=== PATIENT | male | born 1950 | race African-American/Black ===

== ENCOUNTER 2017-08-28 12:19 | Emergency (ER) | payer OTHER ==
[2017-08-28 12:25] VITALS: TEMP 97.7; BMI 24.3
--- NOTE | 2017-08-28 13:21 | PDOC ---
History of Present Illness - General Chief Complaint: Edema Stated Complaint: SWOLLEN LEG Time Seen by Provider: 08/28/17 12:31 History Source: Patient Exam Limitations: No Limitations - History of Present Illness Initial Comments: 08/28/17 13:18 66 y/o M with PMH HTN, urinary incontinence,and schizophrenia, who presents to the ED c/o R knee pain and RLE edema over the past week. 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 A week ago, pt noticed gradual development of edema in his RLE, without shooting pains , numbness or tingling. A day later, he developed pain in his R knee- 5/10, dull pain worsened by movement and increased weight bearing. Pain was temporarily alleviated with ointment. Pt denies MULLEN, fever, chills, or changes in urinary or bowel function. He does not recall twisting his ankle, or any direct injury to his RLE. 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 denies cigarette, alcohol, or recreational drug use Past History - Travel Traveled outside of the country in the last 30 days: No - Past Medical History Allergies/Adverse Reactions: Allergies Allergy/AdvReac Type Severity Reaction Status Date / Time Penicillins Allergy Verified 08/28/17 12:20 Home Medications: Ambulatory Orders Ibuprofen 400 mg PO DAILY PRN #10 tablet 08/28/17 COPD: No HTN: Yes Hypercholesterolemia: Yes Psychiatric Problems: Yes (DEPRESSION,ANXEITY) - Surgical History Abdominal Surgery: Yes (ABD HERNIA) - Suicide/Smoking/Psychosocial Hx Smoking History: Never smoked Have you smoked in the past 12 months: No Information on smoking cessation initiated: No Hx Alcohol Use: No Drug/Substance Use Hx: No Substance Use Type: None Review of Systems - Review of Systems Able to Perform ROS?: Yes Is the patient limited Greek proficient: No : Yes: Incontinence Musculoskeletal: Yes: Joint Pain (R knee), Joint Swelling All Other Systems: Reviewed and Negative *Physical Exam - Vital Signs Last Vital Signs Temp Pulse Resp BP Pulse Ox 97.7 F 92 H 18 110/94 100 08/28/17 12:22 08/28/17 12:22 08/28/17 12:22 08/28/17 12:22 08/28/17 12:22 - Physical Exam General Appearance: Yes: Obese HEENT: positive: EOMI, JENS Neck: positive: Supple Respiratory/Chest: positive: Lungs Clear, Normal Breath Sounds Cardiovascular: positive: Regular Rhythm, Regular Rate, S1, S2 Vascular Pulses: Dorsalis-Pedis (R): 2+, Doralis-Pedis (L): 2+ Gastrointestinal/Abdominal: positive: Normal Bowel Sounds, Soft Musculoskeletal: positive: Decreased Range of Motion (RLE, (-) anterior or posterior drawer sign) Extremity: positive: Pedal Edema, Erythema (R knee) 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 Pt is not septic, likely not septic arthritis however R knee - tender, erythematous and edematous. As it is unilateral, likely not CHF/cardiogenic cause. 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 will need to r/o DVT via doppler. Well's score DVT 0-1, less likely. OA also possible, will get XR Will order the following CBC with diff - r/o any source infection CMP R knee XR Doppler RLE Ibuprofen 600mg PO x 1 for discomfort 08/28/17 13:46 CBC - without white count, infection less likely 08/28/17 16:19 CMP WNL Doppler- (-) for DVT. Likely grewal's cyst Knee XR pending 08/28/17 16:22 Knee XR: calcification, degenerative bone spur along lower pole patella 08/28/17 16:38 will discharge - pt with Grewal's cyst. To follow up with PMD, Dr. Vidal elevate RLE, ice, ibuprofen *DC/Admit/Observation/Transfer Diagnosis at time of Disposition: Grewal cyst Qualifiers: Laterality: right Qualified Code(s): M71.21 - Synovial cyst of popliteal space [Grewal], right knee - Discharge Dispostion Disposition: HOME Condition at time of disposition: Stable Admit: No - Prescriptions Prescriptions: Ibuprofen 400 mg PO DAILY PRN #10 tablet PRN Reason: Pain - Referrals Referrals: Susi Dwyer MD [Primary Care Provider] - - Patient Instructions Printed Discharge Instructions: [facility] Cyst Additional Instructions: You were recently in the hospital for swelling in your right leg and right sided knee pain. While you were in the hospital, you had labs drawn which showed normal results. Your blood counts and electrolyte levels were normal. You also had an ultrasound done on your right leg which did not show a clot. Instead, it showed that you have Grewal's cyst, a small fluid collection behind your knee. No immediate intervention is needed at this time. We suggest that you rest and elevate your leg to promote healing and decrease swelling. You may also take ibuprofen as needed for your pain. We sent a prescription to your pharmacy. You also had an X-ray done of your right leg which just showed chronic changes- calcification, degenerative changes and a bone spur along the lower part of your knee. Please follow up with your primary medical doctor, Dr. Vidal in a week. We hope you feel better soon. Try to rest your leg in the meanwhile and gradually restart physical activity. - Post Discharge Activity Forms/Work/School Notes: Back to Work
--- NOTE | 2017-08-28 13:32 | PDOC ---
Attending Attestation - Resident Resident Name: Cat Orta - ED Attending Attestation I have performed the following: I have examined & evaluated the patient, The case was reviewed & discussed with the resident, I agree w/resident's findings & plan, Exceptions are as noted - HPI HPI: 08/28/17 13:31 66y M presents with R knee pain and RLE edema for the past week. startedoff as leg swelling, but deveoped pain that spread to the knee. 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 pt denies any warmth,f ever/chills , cp, sob, cough, hemptysis, palpitations. No recent falls/trauma. on exam the pt is well appearing in no distress lower extremity exam noted for fulness to posterior aspect of R knee, mild pitting edema in RLE/paiz no redness/warmth pulses symmetric and strong cap refil < 2 sec ddx - dvt vs bakers cyst labs US to r/o DVT ibuprofen for pain control - Physicial Exam PE: 08/28/17 16:43 see above - Medical Decision Making 08/28/17 16:42 pts dvt study negative +bakers cyst labs unremarkble pt feeling improved with ibuprofen supportive manageent at home with rest/elevation PMD fu
[2017-08-28 13:33] LABS: BASO % 1.3 % (0-2.0); EOS % 1.8 % (0-4.5); HEMATOCRIT 39.8 % (35.4-49); HEMOGLOBIN 13.3 GM/dL (11.7-16.9); LYMPH % 20.2 % (8-40); MCH 29.9 pg (25.7-33.7); MCHC 33.3 g/dl (32.0-35.9); MEAN CELL VOLUME 89.8 fl (80-96); MEAN PLT VOLUME 7.2 fl (7.5-11.1); MONO % 11.1 % (3.8-10.2); NEUT % 65.6 % (42.8-82.8); PLATELET COUNT 355 K/MM3 (134-434); RBC 4.44 M/mm3 (4.00-5.60); RDW 15.2 % (11.9-15.9); WHITE BLOOD COUNT 7.9 K/mm3 (4.0-10.0)
[2017-08-28] MEDS ORDERED: IBUPROFEN 600 MG TABLET (FP) PO ONE ×2 (13:41→13:52)
[2017-08-28 13:50] LABS: ALBUMIN 3.6 g/dl (3.4-5.0); ALK PHOS 79 U/L (45-117); ANION GAP 9 (8-16); BILIRUBIN,TOTAL 0.4 mg/dL (0.2-1.0); BLOOD UREA NITROGEN 20 mg/dL (7-18); CHLORIDE 104 mmol/L (98-107); CO2 27 mmol/L (21-32); GLUCOSE,RANDOM 88 mg/dL (74-106); SGPT/ALT 33 U/L (12-78); SODIUM 140 mmol/L (136-145); TOT PROT 7.5 g/dl (6.4-8.2)
[2017-08-28 13:58] LABS: POTASSIUM 4.2 mmol/L (3.5-5.1); SGOT/AST 45 U/L (15-37)
[2017-08-28 16:58] VITALS: BP 125/70; PULSE 55
== END 2017-08-28 16:58 | disposition home or self-care (01) ==
LOC: JER 12:19
DX: M71.21 Synovial cyst of popliteal space [Baker], right knee (principal); I10 Essential (primary) hypertension; E78.00 Pure hypercholesterolemia, unspecified; F25.9 Schizoaffective disorder, unspecified; F41.9 Anxiety disorder, unspecified; N39.3 Stress incontinence (female) (male)
CPT/HCPCS: 36415; 73560-TC-RT-FY; 80053; 85025; 93971-TC; 99282-25

== ENCOUNTER 2017-12-10 06:53 | Day surgery (SDC) | payer OTHER ==
[2017-12-06 17:11] VITALS: BMI 34.8
[2017-12-10] MEDS ORDERED: MIDAZOLAM HCL 2 MG/2 ML SINGLE DOSE VIAL ONE (08:45)
[2017-12-10] MEDS ORDERED: DEXAMETHASONE SOD PHOSPHATE 4 MG/1 ML VIAL ONE (08:49)
[2017-12-10] MEDS ORDERED: KETOROLAC TROMETHAMINE 30 MG/1 ML VIAL ONE (08:49)
[2017-12-10] MEDS ORDERED: LIDOCAINE HCL/PF 2% SDV 5ML VIAL ONE (08:49)
[2017-12-10] MEDS ORDERED: ONDANSETRON 4 MG/2 ML VIAL IVPUSH PRN (09:50)
[2017-12-10] MEDS ORDERED: oxyCODONE HCL 5 MG TABLET PO PRN (09:50)
[2017-12-10] MEDS ORDERED: LACTATED RINGERS SOLUTION 1,000 ML IV SCH (10:00)
[2017-12-10] MEDS ORDERED: ceFAZolin SODIUM 1 GM VIAL IVPB ONE (10:45)
[2017-12-10] MEDS ORDERED: PROPOFOL 20 ML ONE ×2 (10:47)
[2017-12-10] MEDS ORDERED: LIDOCAINE HCL 1%, 10 MG/ML (20ML VIAL) INF ONE ×2 (10:55)
--- NOTE | 2017-12-10 12:19 | OP ---
Operative Note - Note: Operative Date: 12/10/17 Pre-Operative Diagnosis: urge incontinence Operation: full interstim implant Implants: interstim implant Post-Operative Diagnosis: Same as Pre-op Surgeon: Tomas Harley Anesthesia: Fractional
[2017-12-10 13:06] VITALS: TEMP 97.8
[2017-12-10 15:46] VITALS: BP 132/77; PULSE 60
--- NOTE | 2017-12-10 20:52 | OP ---
DATE OF OPERATION: 12/10/2017 PREOPERATIVE DIAGNOSIS: Urge incontinence. POSTOPERATIVE DIAGNOSIS: Urge incontinence. PROCEDURE: Interstim implant. ATTENDING SURGEON: Verenice Harley M.D. INDICATIONS FOR THE PROCEDURE: Patient has severe urinary frequency and urgency with urge incontinence. The patient was informed of the risks and benefits of the procedures and agreed to undertake this procedure. DESCRIPTION OF PROCEDURE: The patient was properly identified and placed in prone position as per operating room protocol. MAC anesthesia was administered. The patient was given 1 g of Ancef. Pillows were placed under the lower abdomen to flatten the sacrum and under the shins to allow the toes to dangle freely. Tape was placed on each buttock and pulled laterally to separate cheeks adequately to visualize anal sphincter. The patient was prepped and draped in the usual sterile manner using ChloraPrep prep solution. The C-arm was moved into the PA position to provide fluoroscopy visual and the midline of the vertebrae. S1 notches and medial foraminal borders were marked. The C-arm was moved to the lateral position to image the area from sacral promontory to the coccyx. Local injection of lidocaine was administered. A 3.5-inch size needle was introduced approximately 2 cm above the SI notch and 3 cm lateral to the vertebral midline, feeling for foraminal margins until the S3 foramen was identified and penetrated. The depth of the needle was confirmed and adjusted fluoroscopically. Proper needle position was confirmed by patient identification of location of sensation, direct observation of the lifting of the perineum or bellowing, and observation of plantar flexion of the great toe utilizing the test stimulator box. The needle stylet was removed and a directional guidewire was placed and confirmed fluoroscopically. The foramen needle was removed. An incision was made peripherally to the directional guidewire through the fascial layer. The dilator and introducer sheath were placed over the directional guidewire and directed into the foramen until the opaque marker of the dilator was seen on the anterior rim of the sacrum. The dilator obturator was unlocked and removed. The lead was then placed through the introducer sheath to the first white line. Position was checked fluoroscopically. The lead was then further introduced until 3 electrodes were visible below the sacrum. Each electrode was tested for location of patient sensation, visualization of juan and plantar flexion of the great toe. After satisfactory positioning was confirmed, under continuous fluoroscopy, the introducer sheath was retracted, deploying the lead tines into the parasacral tissue. Further incision was made into the subcutaneous tissue posterior to the iliac crest and blunt dissection was continued until the gluteal fascia was identified and hemostasis was achieved, allowing for a sufficient pocket for the neurostimulator. A tunneling tool and tube were placed from the lead subcutaneously to the incised pocket site. The tunneling tool was removed and the lead was fed through the tube and pulled out at the pocket site. The lead was cleansed of bodily fluids and a boot was placed over the lead. The lead was inserted into the InterStim II pulse generator and the metal bands were aligned with the white lead tip clearly visible in the distal portion of the pulse generator header. The single set screw was tightened with the hex wrench. The pulse generator was placed into the subcutaneous pocket with the etched identification side placed upward and the extension wrapped counterclockwise around the pulse generator. The programming head was placed over the implanted neurostimulator. The impedance was verified to ensure adequate lead placement and the parameters were within normal limits. If impedance is greater than the normal limits, a second interrogation is required. If the second interrogation is required, further troubleshooting may be required. Impedances were checked, confirmed to be within normal limits at greater than 50 and less than 4000. After implantation of the neurostimulator was completed, complex programming of the neurostimulator was performed based on impedance values. Final electrode sensations were set to 0+1-2-. Estimated time for analysis and complex programming was 30 minutes. The wounds were irrigated with antibiotic solution and water and closed with a subcutaneous and subcuticular stitch. Counts were correct. Steri-Strips and gauze were placed over the incision under the cable connector. The estimated blood loss was less than 3 mL. The patient was transferred to postop in satisfactory condition. Using the clinician pl sql programmer, the patient was programmed to the lead of optimum sensation and given instructions on utilizing the patient pl sql programmer prior to discharge. VERENICE WATT M.D. [id number]
== END 2017-12-10 14:00 | disposition home or self-care (01) ==
LOC: JASU-SURG 06:53
PROVIDERS: ATTEND Urology
PROC: 01HY0MZ Insertion of Neurostimulator Lead into Peripheral Nerve, Open Approach (ICD-10-PCS; 2017-12-10)
PROC: 0JH70BZ Insertion of Single Array Stimulator Generator into Back Subcutaneous Tissue and Fascia, Open Approach (ICD-10-PCS; principal; 2017-12-10 09:00)
DX: N39.41 Urge incontinence (principal); R35.0 Frequency of micturition
CPT/HCPCS: 64581; 64590; C1767; C1778; 76000-TC-FY; 94760

== ENCOUNTER 2018-08-12 07:16 | Day surgery (SDC) | payer OTHER ==
[2018-08-09 09:25] VITALS: BMI 39.1
[2018-08-12] MEDS ORDERED: LIDOCAINE HCL/PF 2% SDV 5ML VIAL ONE (08:19)
[2018-08-12] MEDS ORDERED: PROPOFOL 20 ML ONE ×2 (08:20)
[2018-08-12] MEDS ORDERED: MIDAZOLAM HCL 2 MG/2 ML SINGLE DOSE VIAL ONE (08:20)
[2018-08-12] MEDS ORDERED: DEXAMETHASONE SOD PHOSPHATE 4 MG/1 ML VIAL ONE (08:54)
[2018-08-12] MEDS ORDERED: ONABOTULINUMTOXINA 200 UNIT/VIAL VIAL IM ONE (08:57)
[2018-08-12] MEDS ORDERED: LACTATED RINGERS SOLUTION 1,000 ML IV SCH (09:30)
[2018-08-12] MEDS ORDERED: ONDANSETRON 4 MG/2 ML VIAL IVPUSH PRN (09:30)
[2018-08-12] MEDS ORDERED: oxyCODONE HCL 5 MG TABLET PO PRN (09:30)
[2018-08-12] MEDS ORDERED: ACETAMINOPHEN 500 MG TABLET (FP) PO PRN (09:30)
[2018-08-12] MEDS ORDERED: EPINEPHrine/PF 1 MG/1 ML (1:1,000) AMPULE ONE (09:44)
[2018-08-12] MEDS ORDERED: ePHEDrine SULFATE 50 MG/1 ML AMPULE ONE (09:44)
[2018-08-12] MEDS ORDERED: PHENYLEPHRINE HCL 10 MG/1 ML SINGLE DOSE VIAL ONE (09:45)
[2018-08-12] MEDS ORDERED: NITROGLYCERIN 50 MG/10 ML VIAL IVPB ONE (09:46)
[2018-08-12 11:55] VITALS: TEMP 97.3
--- NOTE | 2018-08-12 13:56 | OP ---
Operative Note - Note: Operative Date: 08/12/18 Pre-Operative Diagnosis: urge incontinence Operation: cystoscopy/intravesical injection of botox Post-Operative Diagnosis: Same as Pre-op Surgeon: Tomas Harley Anesthesia: General
[2018-08-12 14:42] VITALS: BP 150/80; PULSE 58
--- NOTE | 2018-08-13 10:17 | OP ---
DATE OF OPERATION: 08/12/2018 PREOPERATIVE DIAGNOSIS: Urge incontinence. POSTOPERATIVE DIAGNOSIS: Urge incontinence. PROCEDURES: Cystoscopy and intravesical injection of Botox. ANESTHESIA: General. ATTENDING: Verenice Watt MD DESCRIPTION OF PROCEDURE: Patient brought in the operating room, placed in supine position on the operating room table. Anesthesia and preoperative antibiotics were administered. Levaquin was the chosen antibiotic. The patient was then placed in the dorsal lithotomy position, prepped and draped in the usual sterile manner. The patient has a long-standing history of urge incontinence and has failed multiple procedures. The patient presents for intravesical injection of Botox. The patient has 200 units of Botox diluted in 20 mL of saline. Cystoscopy was performed and the bladder was found to have no evidence of neoplasm or stones. Two to 3-plus bladder trabeculation is noted. Twenty injections were given throughout the bladder base and lateral escamilla into the muscle tissue. The 20 mL has 200 units of Botox. This was made by the pharmacy preoperatively. The patient had no significant bleeding. The bladder was emptied at the end of the case and the cystoscope removed. The patient tolerated the procedure very well. No complications were noted. The disposition of the patient was to recovery room. VERENICE WATT M.D. [id number]
== END 2018-08-12 14:42 | disposition home or self-care (01) ==
LOC: JASU-SURG 07:16
PROVIDERS: ATTEND Urology
PROC: 3E0K8GC Introduction of Other Therapeutic Substance into Genitourinary Tract, Via Natural or Artificial Opening Endoscopic (ICD-10-PCS; principal; 2018-08-12 09:00)
DX: N39.41 Urge incontinence (principal)
CPT/HCPCS: 94760; J0585

== ENCOUNTER 2023-12-25 14:34 | Emergency (ER) | payer OTHER ==
[2023-12-25 14:45] VITALS: TEMP 98.6; BMI 40.7
[2023-12-25 19:34] VITALS: BP 167/85; PULSE 68; RESP 18
== END 2023-12-25 19:45 | disposition home or self-care (01) ==
LOC: JER 14:34
PROC: 0HQ1XZZ Repair Face Skin, External Approach (ICD-10-PCS; principal; 2023-12-25)
DX: S01.511A Laceration without foreign body of lip, initial encounter (principal); W01.0XXA Fall on same level from slipping, tripping and stumbling without subsequent striking against object, initial encounter; Y92.512 Supermarket, store or market as the place of occurrence of the external cause
CPT/HCPCS: 70486-TC; 99284-25

== ENCOUNTER 2024-02-25 08:21 | Day surgery (SDC) | payer OTHER ==
[2024-02-18 10:07] VITALS: BMI 37.9
[2024-02-25 08:41] VITALS: RESP 18
[2024-02-25 10:57] VITALS: TEMP 97.3
[2024-02-25 11:18] VITALS: BP 114/56; PULSE 71
== END 2024-02-25 11:40 | disposition home or self-care (01) ==
LOC: FASU-ENDO 08:21
PROVIDERS: ATTEND Internal Medicine Gastroenterology
PROC: 0DBN8ZX Excision of Sigmoid Colon, Via Natural or Artificial Opening Endoscopic, Diagnostic (ICD-10-PCS; principal; 2024-02-25 10:22)
DX: Z12.11 Encounter for screening for malignant neoplasm of colon (principal); K63.5 Polyp of colon; K57.30 Diverticulosis of large intestine without perforation or abscess without bleeding; Z86.010 Personal history of colon polyps
CPT/HCPCS: 88305-TC